=== PATIENT | female | born 1950 | race Caucasian/White ===

== ENCOUNTER 2019-12-29 07:08 | Outpatient (CLI) | payer OTHER, MEDICARE, SELFPAY ==
--- NOTE | ~2019-12-29 | MR_ITS ---
EXAMINATION: MR brain/brain stem wo con DATE: 12/29/2019 08:34 INDICATION: Amnesia. TECHNIQUE: Magnetic resonance imaging (MRI) of the brain and brainstem was performed without intraven ous contrast. Sequences included sagittal and axial T1-weighted SE, axial diffusion-weighted FS SE, a xial T2*-weighted GRE, axial T2-weighted FLAIR, and axial T2-weighted FSE. Apparent diffusion coeffic ient (ADC) maps were created. COMPARISON: Head CT dated 03/06/2017 FINDINGS: There are no areas of restricted diffusion to suggest acute infarction. No intracranial hemorrhage or abnormal intracranial mass lesion. There are no intraparenchymal signal abnormalities seen on the ot her pulse sequences. Again seen is relatively symmetric enlargement of the left and right lateral kimberley tricles which is disproportionate to the sulci most likely central predominant atrophy although diffe rential would include normal pressure hydrocephalus. There are no abnormal extra-axial fluid collecti ons. Flow voids are seen in the cerebral arteries on the T2-weighted sequences consistent with their expected patency. Visualized orbits and soft tissues are unremarkable. IMPRESSION: 1. No acute intracranial process. 2. Stable appearance of relatively symmetric enlargement of the lateral ventricles most likely centra l predominant atrophy although differential would include normal pressure hydrocephalus (NPH: clinica l triad ataxia/gait disturbance, dementia, urinary incontinence). Reviewed, dictated and finalized at location A. IMPRESSION: 1. No acute intracranial process. 2. Stable appearance of relatively symmetric enlargement of the lateral ventric les most likely central predominant atrophy although differential would include normal pressure hydrocephalus (NPH: clinical triad ataxia/gait disturbance, de mentia, urinary incontinence).
== END 2019-12-29 07:09 | disposition home or self-care (01) ==
PROVIDERS: PCP Family Medicine; Visit Provider Nurse Practitioner Family
DX: R41.3 Other amnesia (principal); G93.89 Other specified disorders of brain; R90.89 Other abnormal findings on diagnostic imaging of central nervous system
CPT/HCPCS: 70551

== ENCOUNTER → 2020-08-13 09:22 | Outpatient (CLI) | payer MEDICARE, SELFPAY ==
--- NOTE | ~2020-08-13 | DEXA_ITS ---
Bone Density Report Name: Annika Garcia Age: 70 Sex: Female Ethnicity: White Date of : 1950 Indication: osteopenia; hysterectomy; postmenopausal Referring Provider: GRACIELA, CYRUS Study: Bone densitometry was performed. Exam Date: August 13, 2020 Accession number: [id number] Bone Density: Region BMD T-score Z-score Classification AP Spine (L1-L4) 1.021 -0.2 1.8 Normal Femoral Neck (Left) 0.727 -1.1 0.6 Osteopenia Total Hip (Left) 0.806 -1.1 0.3 Osteopenia Femoral Neck (Right) 0.711 -1.2 0.4 Osteopenia Total Hip (Right) 0.795 -1.2 0.2 Osteopenia Total Hip Mean 0.801 -1.2 0.3 Osteopenia World Health Organization criteria for BMD impression classify patients as: Normal (T-score at or above -1.0), Osteopenia (T-score between -1.0 and -2.5), or Osteoporosis (T-score at or below -2.5). 10-year Fracture Risk(1): Major Osteoporotic Fracture 8.5% Hip Fracture 0.8% Reported Risk Factors: [place] (), Neck BMD=0.711, BMI=33.4 (1) FRAX(R) Version 3.08. Fracture probability calculated for an untreated patient. Fracture probability may be lower if the patient has received treatment. Previous Exams: Region Exam Age BMD T-score BMD Change BMD Change Date g/cm2 vs Baseline vs Previous AP Spine(L1-L4) 08/13/2020 70 1.021 -0.2 0.101 0.049* 12/15/2017 67 0.972 -0.7 0.052 -0.020 06/01/2012 62 0.992 -0.5 0.072 -0.028* 04/18/2010 59 1.021 -0.2 0.100 0.095* 11/22/2007 57 0.926 -1.1 0.005 0.005 03/07/2004 53 0.920 -1.2 Total Hip(Left) 08/13/2020 70 0.806 -1.1 -0.002 0.036* 12/15/2017 67 0.770 -1.4 -0.038 0.015 01/04/2015 64 0.755 -1.5 -0.053 -0.065* 06/01/2012 62 0.820 -1.0 0.012 0.053* 04/18/2010 59 0.767 -1.4 -0.041 0.031* 11/22/2007 57 0.736 -1.7 -0.072 -0.072 03/07/2004 53 0.808 -1.1 Total Hip(Right) 08/13/2020 70 0.795 -1.2 -0.018 0.009 12/15/2017 67 0.786 -1.3 -0.026 -0.026 01/04/2015 64 0.813 -1.1 0.000 -0.063* 06/01/2012 62 0.875 -0.5 0.062 0.072* 04/18/2010 59 0.803 -1.1 -0.009 0.028* 11/22/2007 57 0.775 -1.4 -0.038 -0.038 03/07/2004 53 0.813 -1.1 *Denotes significance at 95% confidence level, LSC for AP Spine = 0.022 g/cm2, LSC f
--- NOTE | ~2020-08-13 | MMUS_ITS ---
EXAMINATION: MM diagnostic jony BI w rhianna, US breast LT complete HISTORY: Patient noticed reddening in the left breast with subsequent resolution but development of a lump/tenderness in the same area in the upper inner quadrant of the left breast. Right axillary pain. TECHNIQUE: Full field bilateral ML, MLO and craniocaudal and left spot CC, ML, MLO s 3-D tomosynthesi s images were performed and synthetic 2-D images were generated. CAD analysis was submitted and inter preted. High resolution complete left breast ultrasound was performed. COMPARISON: 12/15/2017, 11/13/2016 bilateral digital screening mammograms 01/04/2015 bilateral diagnostic digital mammogram 11/25/2013 bilateral diagnostic digital mammogram and bilateral breast ultrasound 11/15/2013, 06/01/2012 bilateral digital screening mammogram examinations BREAST PARENCHYMAL COMPOSITION: The breasts are heterogeneously dense, which may obscure small masses . FINDINGS: MAMMOGRAPHIC FINDINGS: There is nonspecific ill-defined asymmetric increased density in the medial left breast compared to t he right, in the area of clinical complaint. Left breast ultrasound examination was therefore perform ed. There is a biopsy marker on the right; history of prior benign right breast biopsy in 2013. No suspicious mass or architectural distortion, malignant calcification, skin thickening or retractio n is noted otherwise. ULTRASOUND: 10:00 3 cm from nipple at area of clinical complaint of lump/tenderness: There is a 3.7 x 5.7 mm sono lucency with through transmission posterior enhancement consistent with simple cyst. There is heterog eneous echotexture in this general area but no other discrete mass, suspicious vascularity or suspici ous shadowing. 2:00 4 cm from nipple: 3.3 mm x 5.7 circumscribed hypoechoic oval parallel lesion without internal va scularity or posterior shadowing, likely benign. 6:00 2 cm from nipple: Parallel circumscribed 2.2 x 3.7 mm sonolucency, without suspicious shadowing, likely a benign cyst IMPRESSION: 1. Nonspecific asymmetric increased mammographic density in the mid medial left breast, including 10: 00 area of clinical complaint of lump/tenderness, without discrete sonographic mass or suspicious sha dowing; 3-6 month diagnostic left mammogram and left breast ultrasound follow-up are recommended. If there is a clinically suspicious palpable abnormality, consider biopsy at this time. 2. Benign sonographic lesions at 2:00 and 6:00 BI-RADS category 3, probably benign findings. Reviewed, dictated and finalized at location A. OWS SUPPORT ENGINEER IMPRESSION: 1. Nonspecific asymmetric increased mammographic density in the mid medial left breast, including 10:00 area of clinical complaint of lump/tenderness, without discrete sonographic mass or suspicious shadowing; 3-6 month diagnostic left m ammogram and left breast ultrasound follow-up are recommended. If there is a clinically suspicious palpable abnormality, consider biopsy at th is time. 2. Benign sonographic lesions at 2:00 and 6:00 BI-RADS category 3, probably benign findings.
== END ==
PROVIDERS: PCP Nurse Practitioner Family; Referring Provider Obstetrics & Gynecology Gynecology; Visit Provider Nurse Practitioner
DX: M85.88 Other specified disorders of bone density and structure, other site (principal); R92.8 Other abnormal and inconclusive findings on diagnostic imaging of breast; N63.20 Unspecified lump in the left breast, unspecified quadrant; M85.852 Other specified disorders of bone density and structure, left thigh; M85.851 Other specified disorders of bone density and structure, right thigh
CPT/HCPCS: 76641; 77062; 77066; 77080; G0279

== ENCOUNTER → 2021-06-22 09:46 | Outpatient (CLI) | payer MEDICARE, SELFPAY ==
--- NOTE | ~2021-06-22 | MMUS_ITS ---
EXAMINATION: MM diagnostic jony BI w rhianna, US breast LT complete HISTORY: Follow-up left breast masses TECHNIQUE: Additional 3-D tomosynthesis images of the breasts were performed and synthetic 2-D images were generated. CAD analysis was submitted and interpreted. High resolution complete left breast ult rasound was performed. COMPARISON: Comparison to multiple prior studies sequentially, with oldest reviewed study dated 01/04. BREAST PARENCHYMAL COMPOSITION: Breast composed of scattered areas of fibroglandular density FINDINGS: MAMMOGRAPHIC FINDINGS: There is stable nodular asymmetries scattered throughout the left breast. No new masses, calcificatio ns or architectural distortion in the left breast to suggest malignancy. ULTRASOUND: Complete left US of all 4 quadrants of the breast and retroareolar region was reviewed. There are mul tiple simple and complicated cysts of the left breast located at 1, 2, 4 and 10:00 positions. No susp icious masses to suggest malignancy. IMPRESSION: 1. No evidence for malignancy in either breast. Benign findings. 2. Routine yearly screening mammogram and regular clinical breast examination are recommended. BI-RADS Category 2: Benign finding(s). Reviewed, dictated and finalized at location A. IMPRESSION: 1. No evidence for malignancy in either breast. Benign findings. 2. Routine yearly screening mammogram and regular clinical breast examination a re recommended. BI-RADS Category 2: Benign finding(s).
== END ==
PROVIDERS: Visit Provider Obstetrics & Gynecology Gynecology
DX: R92.8 Other abnormal and inconclusive findings on diagnostic imaging of breast (principal)
CPT/HCPCS: 76641; 77062; 77066; G0279

== ENCOUNTER 2021-12-02 00:57 | Day surgery (SDC) | payer MEDICARE, SELFPAY ==
[2021-09-12 09:53] VITALS: BMI 32.3
[2021-11-23 13:17] VITALS: BMI 31.6
--- NOTE | 2021-12-01 12:49 | PM.HPGS ---
History of Present Illness History of Present Illness Consent: Risks, benefits, and alternatives have been discussed and questions answered. Patient agrees to proceed with procedure. Chief complaint: neoplasm screening Narrative: Annika Garcia is a 71 year old female Referred for colon cancer screening. Review of Systems Review of Systems: All systems reviewed & are unremarkable except as noted in HPI and below PMFSH Past Medical History Medical History Right knee pain Surgical History Surgical History History of total right knee replacement Hx of total knee arthroplasty Family History Family History Father Hypertension Family history of heart disease in male family member before age 55 Mother Hypertension Grandparent Family history of throat cancer Other Family history of arthritis Family history of cardiovascular disease Family history of malignant neoplasm Social History Social History Smoking status: Never smoker Additional smoking assessment comments: smoked Alcohol intake: current Alcohol use details: rare occasional use Substance use: never Substance use type: does not use Living arrangements: alone Spiritual care concerns: No Meds Home Medications and Allergies Home Medications Medication Instructions Recorded Confirmed Type paroxetine HCl 40 mg tablet 40 mg PO DAILY #90 tablet 08/23/21 11/23/21 Rx aspirin [Aspir-81] 81 mg PO DAILY 09/12/21 09/12/21 History atorvastatin 10 mg tablet 10 mg PO DAILY #90 tablet 09/27/21 11/23/21 Rx benazepril 20 mg tablet 20 mg PO DAILY #90 tablet 09/27/21 11/23/21 Rx celecoxib 200 mg capsule 200 mg PO BID #180 cap 09/27/21 11/23/21 Rx chlorthalidone 25 mg tablet 25 mg PO DAILY #90 tablet 09/27/21 11/23/21 Rx pantoprazole 40 mg tablet,delayed 40 mg PO QAM #90 tablet 09/27/21 11/23/21 Rx release Allergies Allergy/AdvReac Type Severity Reaction Status Date / Time No Known Allergies Allergy Verified 12/02/21 11:45 Exam Const: General: alert Orientation/consciousness: patient oriented x3 Resp: Auscultation: clear to auscultation bilaterally Cardio: Rhythm: regular rhythm GI: GI Palp: Yes Soft to palpation and No Tenderness to palpation present (GI) Neuro: General: patient oriented x3 Assessment and Plan Assessment and plan (1) Colon cancer screening: Code(s): Z12.11 - Encounter for screening for malignant neoplasm of colon Status: Acute Assessment and Plan: Colonoscopy with possible biopsy or polypectomy or cautery or injection of substances.
[2021-12-02 11:47] VITALS: BP 139/82; PULSE 104; RESP 18; TEMP 36.3; O2SAT 100
[2021-12-02] MEDS: LACTATED RINGERS 1,000 ML 150 ML IV CONT (11:55)
--- NOTE | 2021-12-02 12:41 | WPDANESEPPF ---
Anes - Initial Pre Proc Eval Procedure: Operation Date: 12/02/21 13:00 Proposed Procedures p Screening Colonoscopy - Ryan Williamson MD Date/Time: 12/02/21 12:41 Surgeon: Ryan Williamson MD Pre Op Diagnosis: neoplasm screening Patient Data Age: 71 Gender: F Height: 1.55 m Weight: 75.2 kg Last Vital Signs Temp 36.3 C L 12/02/21 11:47 Pulse 104 H 12/02/21 11:47 Resp 18 12/02/21 11:47 BP 139/82 12/02/21 11:47 Pulse Ox 100 12/02/21 11:47 Allergies Allergy/AdvReac Type Severity Reaction Status Date / Time No Known Allergies Allergy Verified 12/02/21 11:45 Home Medications Medication Instructions Recorded Confirmed Type paroxetine HCl 40 mg tablet 40 mg PO DAILY #90 tablet 08/23/21 11/23/21 Rx aspirin [Aspir-81] 81 mg PO DAILY 09/12/21 09/12/21 History atorvastatin 10 mg tablet 10 mg PO DAILY #90 tablet 09/27/21 11/23/21 Rx benazepril 20 mg tablet 20 mg PO DAILY #90 tablet 09/27/21 11/23/21 Rx celecoxib 200 mg capsule 200 mg PO BID #180 cap 09/27/21 11/23/21 Rx chlorthalidone 25 mg tablet 25 mg PO DAILY #90 tablet 09/27/21 11/23/21 Rx pantoprazole 40 mg tablet,delayed 40 mg PO QAM #90 tablet 09/27/21 11/23/21 Rx release Patient hx anesthesia problems: none Family hx anesthesia problems: none Results Review: All pre-operative results and documents have been reviewed as part of the pre-operative evaluation. [facility] Past Medical History Medical History (Updated 12/02/21 @ 12:46 by Rosas Alonso DO) Essential (primary) hypertension Mixed hyperlipidemia Right knee pain Type 2 diabetes mellitus without complications Surgical History Surgical History History of total right knee replacement Hx of total knee arthroplasty Family History Family History Father Hypertension Family history of heart disease in male family member before age 55 Mother Hypertension Grandparent Family history of throat cancer Other Family history of arthritis Family history of cardiovascular disease Family history of malignant neoplasm Social History Social History Smoking status: Never smoker Additional smoking assessment comments: smoked Alcohol intake: current Alcohol use details: rare occasional use Substance use: never Substance use type: does not use Living arrangements: alone Spiritual care concerns: No Anes - Eval Final PreProcedure Day of Procedure 12/02/21 12:41 Patient weight: obese Heart: regular rate and rhythm Lungs: clear to auscultation and normal air movement Airway: Mallampati scale class II Neurological: alert and oriented Last oral intake: >/= 8 hours ASA classification: III Emergent: no Anesthetic plan: proceed Anesthesia type and monitoring: general GIVS and standard monitoring Results Review: All pre-operative results and documents have been reviewed as part of the pre-operative evaluation. Informed Consent: The patient's anesthetic plan and its attendant risks and benefits were discussed with the patient/family/POA. Questions were solicited and answers provided to the satisfaction of the patient/family/POA.
[2021-12-02 13:13] VITALS: BP 121/73; PULSE 94; RESP 18; O2SAT 99
[2021-12-02 13:23] VITALS: BP 132/73; PULSE 91; RESP 18; O2SAT 99
[2021-12-02 13:33] VITALS: BP 134/76; PULSE 85; RESP 20; O2SAT 98
== END 2021-12-02 13:45 | disposition home or self-care (01) ==
PROVIDERS: PCP Family Medicine; Visit Provider Internal Medicine Gastroenterology
PROC: 0DJD8ZZ Inspection of Lower Intestinal Tract, Via Natural or Artificial Opening Endoscopic (ICD-10-PCS; CPT 45378; principal; 2021-12-02 13:00)
DX: Z12.11 Encounter for screening for malignant neoplasm of colon (principal); Z79.82 Long term (current) use of aspirin; E11.9 Type 2 diabetes mellitus without complications; I10 Essential (primary) hypertension; E78.2 Mixed hyperlipidemia; E66.9 Obesity, unspecified; Z68.31 Body mass index [BMI] 31.0-31.9, adult
CPT/HCPCS: G0121; J2704; J7120

== ENCOUNTER 2022-09-05 09:48 | Outpatient (CLI) | payer MEDICARE, SELFPAY ==
--- NOTE | ~2022-09-05 | MR_ITS ---
MRI of the brain Clinical History: Memory loss, ataxia COMPARISON: 12/29/2019 Technique: Axial and sagittal T1-weighted images were acquired. These were followed by axial T2-weigh renato, diffusion weighted, gradient, and FLAIR images. Findings: No significant signal abnormality seen in the brain parenchyma. No acute infarct, intracran ial hemorrhage, or mass lesion. Stable ventricular dilatation as compared to prior exam. Orbits are unremarkable. Paranasal sinuses a nd mastoid air cells are clear. Major intracranial flow voids are intact. Sagittal midline structures are intact. IMPRESSION: No acute abnormality. Stable ventricular dilatation. Reviewed, dictated and finalized at location . 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
== END 2022-09-05 09:49 | disposition home or self-care (01) ==
LOC: ANHIMG 09:49
PROVIDERS: PCP Family Medicine; Visit Provider Family Medicine
DX: R41.3 Other amnesia (principal); R27.0 Ataxia, unspecified
CPT/HCPCS: 70551

== ENCOUNTER 2022-11-16 08:45 | Outpatient (RCR) | payer MEDICARE, SELFPAY ==
--- NOTE | 2022-09-05 15:45 | PTOPEVAL1 ---
Assessment and note entered by Roberto Tucker, PT Evaluation Information Assessment Status Evaluation Diagnosis Ataxia unspecified, repeated falls Onset a couple of weeks ago Subjective Information Patient reports she was feeling weak and slid out of her couch twice a couple of weeks ago and her legs were shaky and unable to support her. She used her walker to get around for a few days, but since then she has been feeling well with no issues. She did have an MRI done earlier today which according to the report shows no acute findings. Reported Pain Level Pain Score 0: Self Report Assessment PT Clinical Summary Geri is a 72 year old female coming into the clinic with a history of falls and feeling weakness in her legs. She has decreased strength in her hip and ankles along with decreased heel strike on the RLE and a Tinetti score of 21/28 which is a moderate risk of falls. Physical therapy could benefit the patient in order to increase her strength and balance which would reduce her chance of further falls. Plan of Care Interventions Electrical Stimulation,Gait Training,Hot Pack/Cold Pack,Manual Therapy,Neuro Re-education,Patient/ Caregiver Education,Therapeutic Activities, Therapeutic Exercise PT Services Indicated Yes Treatment Frequency and 1-2x/wk/ 4 weeks Duration These treatments will address the objective and functional deficits as defined above. The patient will be advanced safely and appropriately in order for the patient to progress towards his/her prior level of function. Additional exercises will be introduced and as well as a comprehensive home exercise program upon discharge, if needed, ?to ensure carryover of functional gains achieved in the clinic. This treatment plan has been reviewed and agreement upon by the patient.
--- NOTE | 2022-10-02 16:48 | PTOPREEVAL ---
Assessment and note entered by Roberto Tucker, PT Evaluation Information Assessment Status Re-evaluation Diagnosis ataxia, unspecified, repeated falls. Onset a couple of weeks ago Subjective Information Patient reports increase feeling of strength in her ankles and glute meds, but still feels like she does not have the balance she would like. Her home remodel is almost done with so she can spend more time doing her home exercises now. Reported Pain Level Pain Score 0: Self Report Assessment PT Clinical Summary Geri has been coming to therapy since September 14 and has attended 6 visits so far. She has met goals for Tinetti balance score, ankle strength, and times 5 sit to stand test, but still has weak hip strength especially hip flexion and extension. Would like to continue to improve hip strength and work on more balance activities with patient. Plan of Care Interventions Electrical Stimulation,Gait Training,Hot Pack/Cold Pack,Manual Therapy,Neuro Re-education,Patient/ Caregiver Education ,Therapeutic Activities, Therapeutic Exercise,Ultrasound PT Services Indicated Yes Treatment Frequency and 1-2x/wk for 4 weeks Duration These treatments will address the objective and functional deficits as defined above. The patient will be advanced safely and appropriately in order for the patient to progress towards his/her prior level of function. Additional exercises will be introduced and as well as a comprehensive home exercise program upon discharge, if needed, ?to ensure carryover of functional gains achieved in the clinic. This treatment plan has been reviewed and agreement upon by the patient.
--- NOTE | 2022-10-25 16:44 | PCPTNOTE ---
Pt. was not seen for therapy this date. Pt. called and cancelled.
--- NOTE | 2022-10-30 10:17 | PCPTNOTE ---
Patient called & cancelled scheduled appointment this date due to not feeling well, re-evaluation scheduled for later.
--- NOTE | 2022-11-16 09:22 | PTOPDC ---
Assessment and note entered by Roberto Tucker, PT Evaluation Information Assessment Status Discharge Diagnosis Ataxia unspecified, repeated falls Onset a couple of weeks ago Subjective Information Patient reports she is doing much better. No falls since last visit or since last re-evaluation . She reports able to move around more easy and now that her house is mainly done with its renovation she is doing some of her HEP. Reported Pain Level Pain Score 0: Self Report Assessment PT Clinical Summary Geri is a 72 year old female coming into the clinic for balance issues. She has met all of her goals with her Tinetti score making her a minimal chance for falls and increased strength from initial evaluation. Patient reports she feels safe to be discharged and cannot think of anything else she wants to work on at this time. Plan of Care PT Services Indicated No Treatment Frequency and Discharged from skilled physical therapy. Duration
== END 2022-11-27 08:37 | disposition home or self-care (01) ==
LOC: ANHPT 08:45
PROVIDERS: PCP Family Medicine; Visit Provider Family Medicine
DX: R27.0 Ataxia, unspecified (principal); R29.6 Repeated falls
CPT/HCPCS: 97110; 97161; 97530

== ENCOUNTER → 2023-01-26 09:11 | Outpatient (CLI) | payer MEDICARE, SELFPAY ==
--- NOTE | ~2023-01-26 | XR_ITS ---
EXAMINATION: XR shoulder RT min 2V DATE: 01/26/2023 09:34 INDICATION: Right shoulder pain. TECHNIQUE: 4 views of right shoulder were obtained. COMPARISON: Right shoulder radiographs 09/27/2015 FINDINGS: Bone alignment is normal. No fracture. There is severe osteoarthritis of glenohumeral joint with loose body. There is severe osteoarthritis of acromioclavicular joint. IMPRESSION: 1. Severe osteoarthritis of glenohumeral joint with loose body. 2. Severe acromioclavicular joint osteoarthritis. Reviewed, dictated and finalized at location A.
== END ==
PROVIDERS: PCP Nurse Practitioner Family; Visit Provider Nurse Practitioner Family
DX: M19.011 Primary osteoarthritis, right shoulder (principal); M24.011 Loose body in right shoulder
CPT/HCPCS: 73030

== ENCOUNTER 2023-02-26 11:38 | Outpatient (CLI) | payer MEDICARE, SELFPAY ==
--- NOTE | ~2023-02-26 | XR_ITS ---
EXAM: XR cervical spine min 6V DATE: 02/26/2023 12:17 HISTORY: M54.2 - Cervicalgia, CHRONIC- NO INJURY . COMPARISON: None available. FINDINGS: Craniocervical association and atlantoaxial joint are aligned. No prevertebral soft tissue swelling. Vertebral body heights are maintained. Reversed cervical lordosis centered at C4. 2 mm ant erolisthesis at C2-3 and C3-4, both of which reduce in extension. 2 mm retrolisthesis at C4-5, stable in flexion and extension. Moderate disc space narrowing and marginal osteophytosis at C4-5 through C 6-7. Bilateral neural foraminal narrowing, mild at C3-4 and moderate at C4-5 through C6-7. Multilevel facet hypertrophy and sclerosis. IMPRESSION: Dynamic grade 1 anterolistheses at C2-3 and C3-4. Stable grade 1 retrolisthesis at C4-5. Moderate degenerative disc disease and bilateral neural foraminal narrowing at C4-5 through C6-7. Reviewed, dictated and finalized at location K. IMPRESSION: Dynamic grade 1 anterolistheses at C2-3 and C3-4. Stable grade 1 re trolisthesis at C4-5. Moderate degenerative disc disease and bilateral neural f oraminal narrowing at C4-5 through C6-7.
--- NOTE | ~2023-02-26 | XR_ITS ---
EXAM: XR lumbar spine 6V w bending DATE: 02/26/2023 12:17 HISTORY: M54.50 - Low back pain, unspecified, CHRONIC, NO INJURY . COMPARISON: None available. FINDINGS: 5 nonrib-bearing lumbar-type vertebral bodies. Pedicles intact. 2 mm retrolistheses noted at L1-2 and L2-3 in extension. Grade 1 retrolisthesis at L5-S1 that reduces slightly in flexion. Vert ebral body heights preserved. Disc space narrowing and marginal osteophytosis at all lumbar levels, s evere at L4-5 and L5-S1. Mild lumbar scoliosis. No pars defect. Multilevel moderate facet sclerosis a nd hypertrophy in the mid and lower lumbar spine. Interspinous narrowing/impingement in the lower lum bar spine. No fracture or dislocation. IMPRESSION: Severe degenerative disc disease at L4-5 and L5-S1. Grade 1 dynamic retrolistheses at L1- 2, L2-3, and L5-S1. Multilevel moderate mid and lower lumbar facet arthropathy and spinous process im pingement. Reviewed, dictated and finalized at location K. IMPRESSION: Severe degenerative disc disease at L4-5 and L5-S1. Grade 1 dynamic retrolistheses at L1-2, L2-3, and L5-S1. Multilevel moderate mid and lower lum bar facet arthropathy and spinous process impingement.
--- NOTE | ~2023-02-26 | XR_ITS ---
PA, oblique, and lateral views of the right thumb CLINICAL HISTORY: Pain FINDINGS: There is advanced degenerative change of the first CMC joint. There is mild degenerative ch anay of the first MCP joint and interphalangeal joint of the thumb. No fracture or dislocation seen. Soft tissues are unremarkable. IMPRESSION: Degenerative changes, as above, worst at the first carpal metacarpal joint. Reviewed, dictated and finalized at location .
== END 2023-02-26 11:39 | disposition home or self-care (01) ==
PROVIDERS: PCP Family Medicine; Visit Provider Family Medicine
DX: M79.644 Pain in right finger(s) (principal); M51.36 Other intervertebral disc degeneration, lumbar region; M51.37 Other intervertebral disc degeneration, lumbosacral region
CPT/HCPCS: 72052; 72114; 73140

== ENCOUNTER → 2023-03-17 08:03 | Outpatient (CLI) | payer MEDICARE, SELFPAY ==
--- NOTE | ~2023-03-17 | MR_ITS ---
EXAMINATION: MR cervical spine wo con DATE: 03/17/2023 09:10 INDICATION: Cervical disc displacement. TECHNIQUE: Magnetic resonance imaging (MRI) of the cervical spine was performed without intravenous c ontrast. Sequences included sagittal T2-weighted FSE, sagittal T2-weighted FS FSE, sagittal T1-weight ed FSE, axial MERGE, and axial T2-weighted FSE. COMPARISON: Cervical spine radiographs 02/26/2023 FINDINGS: There is kyphosis of cervical spine. There is 2 mm retrolisthesis of C4 on C5, C5 on C6, an d C6 on C7. Vertebral body heights are normal. There is severely decreased disc height from C4-C5 thr ough C6-C7 with endplate remodeling. The spinal cord signal intensity is normal. The following disc l evels are specifically discussed: C2-C3: The disc does not extend beyond the endplate margin. There is no uncovertebral joint osteoarth ritis. There is moderate right and severe left facet joint osteoarthritis. There is mild left neural foraminal stenosis. There is no central canal stenosis. C3-C4: The disc is bulging. There is moderate bilateral uncovertebral joint osteoarthritis. There is severe bilateral facet joint osteoarthritis. There is moderate bilateral neural foraminal stenosis. T here is mild central canal stenosis. C4-C5: The disc is bulging. There is severe bilateral uncovertebral joint osteoarthritis. There is se jeff bilateral facet joint osteoarthritis. There is moderate bilateral neural foraminal stenosis. The re is moderate central canal stenosis with ventral and dorsal indentation of the spinal cord. C5-C6: The disc is bulging with superimposed central extrusion. There is severe bilateral uncovertebr al joint osteoarthritis. There is severe bilateral facet joint osteoarthritis. There is moderate bila teral neural foraminal stenosis. There is moderate central canal stenosis with ventral and dorsal ind entation of the spinal cord. C6-C7: The disc is bulging. There is severe bilateral uncovertebral joint osteoarthritis. There is se jeff bilateral facet joint osteoarthritis. There is moderate bilateral neural foraminal stenosis. The re is mild central canal stenosis. C7-T1: The disc does not extend beyond the endplate margin. There is mild bilateral uncovertebral ruiz nt osteoarthritis. There is moderate bilateral facet joint osteoarthritis. There is mild left neural foraminal stenosis. There is no central canal stenosis. IMPRESSION: 1. Severe cervical spondylosis. Reviewed, dictated and finalized at location A.
--- NOTE | ~2023-03-17 | MR_ITS ---
EXAMINATION: MR lumbar spine wo con DATE: 03/17/2023 09:27 INDICATION: Low back pain. TECHNIQUE: Magnetic resonance imaging (MRI) of the lumbar spine was performed without intravenous con trast. Sequences included sagittal T2-weighted FSE, sagittal T2-weighted FS FSE, sagittal T1-weighted FSE, and axial T2-weighted FSE. COMPARISON: Lumbar spine radiographs 02/26/2023 FINDINGS: There is 6 degrees dextrocurvature of lumbar spine. Vertebral body heights are normal. Ther e is mildly decreased disc height at L3-L4, severely decreased disc height at L4-L5, and moderately d ecreased disc at L5-S1 with endplate remodeling. The distal spinal cord signal intensity is normal. T he conus medullaris is at T12-L1. The following disc levels are specifically discussed: L1-L2: The disc is bulging. There is no facet joint osteoarthritis. There is mild bilateral neural fo raminal stenosis. There is mild central canal stenosis. L2-L3: The disc is bulging. There is mild bilateral facet joint osteoarthritis. There is mild bilater al neural foraminal stenosis. There is mild central canal stenosis. L3-L4: The disc is bulging and has an annular fissure. There is moderate bilateral facet joint osteoa rthritis. There is mild bilateral neural foraminal stenosis. There is mild central canal stenosis. L4-L5: The disc is bulging and has an annular fissure. There is severe right and mild left facet join t osteoarthritis. There is mild right and moderate left neural foraminal stenosis. There is mild cent ral canal stenosis. L5-S1: The disc is bulging with superimposed left subarticular zone extrusion. There is mild right an d severe left facet joint osteoarthritis. There is moderate left neural foraminal stenosis. There is mild central canal stenosis. IMPRESSION: 1. Severe lumbar spondylosis. Reviewed, dictated and finalized at location A.
== END ==
PROVIDERS: PCP Family Medicine; Visit Provider Nurse Practitioner Family
DX: M50.20 Other cervical disc displacement, unspecified cervical region (principal); M47.812 Spondylosis without myelopathy or radiculopathy, cervical region; M47.816 Spondylosis without myelopathy or radiculopathy, lumbar region
CPT/HCPCS: 72141; 72148

== ENCOUNTER 2024-03-04 14:01 | Outpatient (CLI) | payer MEDICARE, SELFPAY ==
--- NOTE | ~2024-03-04 | DEXA_ITS ---
Bone Density Report Name: HENNY REECE Age: 73 Sex: Female Ethnicity: White Date of : 1950 Indication: postmenopausal; screening for osteoporosis; history of glucocorticoids; cancer; hysterectomy; Referring Provider: ALAN JACOBS Study: Bone densitometry was performed. Exam Date: March 04, 2024 Accession number: [id number] Bone Density: Region BMD T-score Z-score Classification AP Spine(L1-L4) 0.985 -0.6 1.7 Normal Femoral Neck (Left) 0.645 -1.8 0.1 Osteopenia Total Hip (Left) 0.992 0.4 2.0 Normal Femoral Neck (Right) 0.603 -2.2 -0.3 Osteopenia Total Hip (Right) 0.935 -0.1 1.5 Normal Total Hip Mean 0.963 0.2 1.8 Normal World Health Organization criteria for BMD impression classify patients as: Normal (T-score at or above -1.0), Osteopenia (T-score between -1.0 and -2.5), or Osteoporosis (T-score at or below -2.5). 10-year Fracture Risk(1): Major Osteoporotic Fracture 19% Hip Fracture 4.7% Reported Risk Factors: [place] (), Neck BMD=0.603, BMI=35.0, glucocorticoids (1) FRAX(R) Version 3.08. Fracture probability calculated for an untreated patient. Fracture probability may be lower if the patient has received treatment. Clinical Information Provided by Patient: Has taken Glucocorticoids Has the following medical conditions: Cancer, Hysterectomy, Skin Patient maximum height was 51.0 Menopause Age: 47 No regular weight bearing exercise Drinks caffeinated beverages Onset of menses at age 15 Number of children 1 Impression: The patient has low bone mass, based on the Right Femoral Neck T-score. The patient has an estimated ten-year risk of hip fracture of 4.7% and an estimated ten-year risk of major fracture of 19%, based on the WHO FRAX algorithm. The patient has risk factors, including: history of glucocorticoid therapy. Discussion: BONE DENSITY IS LOW AT ONE OR MORE SKELETAL SITES. THE PATIENT'S BMD AND CLINICAL RISK FACTORS CONTRIBUTE TO THIS PATIENT'S INCREASED RISK OF FRACTURE. This patient's lowest T-score is low at one or more skeletal sites. It meets the World Health Organization's (WHO) criteria for ?low bone mass? (T-score between -1.0 and -2.5). The patient's 10-year risk of hip fracture as calculated by FRAX exceeds the threshold where pharmacological therapy is recommended by the National Osteoporosis Foundation (NOF). However, all treatment decisions require clinical judgment and consideration of individual patient factors, including patient preferences, comorbidities, previous drug use, risk factors not captured in the FRAX model (e.g., frailty, falls, vitamin D deficiency, increased bone turnover, interval significant decline in bone density) and possible under or overestimation of fracture risk by FRAX. The patient should follow a healthfu
== END 2024-03-04 14:02 | disposition home or self-care (01) ==
PROVIDERS: PCP Family Medicine; Visit Provider Family Medicine
DX: Z78.0 Asymptomatic menopausal state (principal); Z13.820 Encounter for screening for osteoporosis; M85.852 Other specified disorders of bone density and structure, left thigh; M85.851 Other specified disorders of bone density and structure, right thigh
CPT/HCPCS: 77080

== ENCOUNTER 2024-07-16 11:47 | Outpatient (CLI) | payer MEDICARE, SELFPAY ==
--- NOTE | ~2024-07-16 | MM_ITS ---
EXAMINATION: MM screening jony BI w rhianna HISTORY: Screening TECHNIQUE: Craniocaudal and mediolateral oblique 3-D tomosynthesis images were obtained and synthetic 2-D images were generated. CAD analysis was submitted and interpreted. COMPARISON: Comparison to multiple prior studies sequentially, with oldest reviewed study dated 01/04. BREAST PARENCHYMAL COMPOSITION: Not dense: There are scattered areas of fibroglandular density. FINDINGS: There are asymmetries in the periareolar location of the left breast. The right breast is s table without evidence for malignancy. IMPRESSION: 1. Left breast asymmetries. 2. Additional mammographic views and possible breast ultrasound are recommended. BI-RADS Category 0: Incomplete: Needs additional imaging evaluation. Reviewed, dictated and finalized at location B. GER LEAN IMPRESSION: 1. Left breast asymmetries. 2. Additional mammographic views and possible breast ultrasound are recommended . BI-RADS Category 0: Incomplete: Needs additional imaging evaluation.
== END 2024-07-16 11:48 | disposition home or self-care (01) ==
LOC: MICIMG 11:49
PROVIDERS: PCP Family Medicine; Visit Provider Obstetrics & Gynecology Gynecology
DX: Z12.31 Encounter for screening mammogram for malignant neoplasm of breast (principal); R92.8 Other abnormal and inconclusive findings on diagnostic imaging of breast
CPT/HCPCS: 77063; 77067

== ENCOUNTER 2024-09-24 09:51 | Outpatient (CLI) | payer MEDICARE, SELFPAY ==
--- NOTE | ~2024-09-24 | MM_ITS ---
EXAMINATION: MM diagnostic jony LT w rhianna HISTORY: Left asymmetric density TECHNIQUE: Additional 3-D tomosynthesis images of the left breast were performed and synthetic 2-D im ages were generated. CAD analysis was submitted and interpreted. COMPARISON: 07/16/2024, 06/22/2021, 08/13/2020 BREAST PARENCHYMAL COMPOSITION:Not Dense. There are scattered areas of fibroglandular density. FINDINGS: Left periareolar asymmetry effaces with spot compression. No persistent mass lesion or dist ortion seen. No suspicious microcalcification. IMPRESSION: No mammographic evidence for malignancy. BI-RADS Category 1: Negative Reviewed, dictated and finalized at location . AIN MENDER
== END 2024-09-24 09:52 | disposition home or self-care (01) ==
PROVIDERS: PCP Family Medicine; Visit Provider Obstetrics & Gynecology Gynecology
DX: R92.8 Other abnormal and inconclusive findings on diagnostic imaging of breast (principal)
CPT/HCPCS: 77061; 77065; G0279

== ENCOUNTER 2025-04-14 12:56 | Outpatient (CLI) | payer MEDICARE, SELFPAY ==
--- NOTE | ~2025-04-14 | XR_ITS ---
AP and lateral views of the right femur Clinical History: Pain Findings: No acute fracture or dislocation is seen. Osseous alignment is anatomic. Right knee arthrop lasty in place. Right hip joint intact. Soft tissues are unremarkable. Impression: No acute abnormality. Right knee arthroplasty in place. Reviewed, dictated and finalized at location . Impression: No acute abnormality. Right knee arthroplasty in place.
--- NOTE | ~2025-04-14 | XR_ITS ---
AP lateral views of the right hip Clinical history: Pain Findings: No acute fracture or dislocation is seen. Osseous alignment is anatomic. Right hip joint is intact. Soft tissues are unremarkable. Impression: No significant abnormality is seen. Reviewed, dictated and finalized at location M. Impression: No significant abnormality is seen.
== END 2025-04-14 12:57 | disposition home or self-care (01) ==
LOC: MICIMG 12:57
PROVIDERS: PCP Family Medicine; Visit Provider Family Medicine
DX: M79.651 Pain in right thigh (principal)
CPT/HCPCS: 73502; 73552